=== PATIENT | female | born 1965 | race Caucasian/White ===

== ENCOUNTER → 2023-02-01 | Outpatient (CLI) | payer OTHER ==
[~2023-02-01] MED LIST: ASP81CT PO; BUDE6HFA; CPR500T PO; HYDR1TAB PO; LISI2.5T; MTP25TSR PO; NCT7P TD; NF-ESOM40C; OXYC-309 PO; SENN1TAB76 PO; SEROQUEL; TEMA30CA6 PO; VARE0.5T PO; VARE1TAB17 PO
--- NOTE | 2023-02-01 17:01 | Diagnostic Imaging Report ---
PROCEDURE: CT abdomen and pelvis without contrast. TECHNIQUE: Multiple contiguous axial images were obtained through the abdomen and pelvis without the use of intravenous contrast. Auto Exposure Controls were utilized during the CT exam to meet ALARA standards for radiation dose reduction. INDICATION: History of renal cysts. COMPARISON: None. FINDINGS: The heart is unremarkable. The lung bases are clear. 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 There is atrophy of the right kidney. Scattered small nonobstructing calculi are seen. No obstructing calculi or hydronephrosis. Cortical cysts are seen in both kidneys. The urinary bladder is nondistended. No bladder calculi. Pneumobilia is seen. There is also air in the gallbladder. Cystic focus is seen in the tail of the pancreas with peripheral calcifications measuring 3.3 x 2.4 cm. No pancreatic ductal dilation. The adrenal glands have an unremarkable noncontrast CT appearance. There is no pathologically enlarged mesenteric or retroperitoneal adenopathy. Postsurgical changes of right hemicolectomy are noted. There is soft tissue fullness with associated calcifications extending from the colectomy site measuring 3.8 x 2.4 cm. No bowel obstruction. A small ventral hernia extending left of midline is seen containing a loop of bowel. No significant inflammatory changes are associated with this. Scattered diverticula are present in the sigmoid colon without evidence of acute diverticulitis. No free fluid or free air. No acute osseous abnormalities. Posterior fusion changes are seen at L5-S1. There is calcified aortic and iliac atherosclerotic plaque without aneurysm. An IVC filter is in place. There is no free air, loculated collection, or adenopathy in the pelvis. IMPRESSION: 1. Bilateral renal cysts, incompletely evaluated on this noncontrast study. If indicated consider ultrasound or contrast enhanced study to further evaluate. No hydronephrosis. Punctate nonobstructing calculi are seen bilaterally. There is atrophy of the right kidney. 2. Pneumobilia with air in the gallbladder. Findings may represent sphincter of Christopher dysfunction. Recommend correlation with patient history and symptoms and if indicated ERCP to further evaluate. 3. Cystic focus in the tail of the pancreas with peripheral calcifications. Given the absent spleen this may represent postsurgical changes. Pancreatic neoplasm is not excluded and followup is recommended. 4. Postsurgical changes of right hemicolectomy with soft tissue fullness and associated calcifications extending from the colectomy site. This may represent chronic postsurgical changes versus recurrent/residual mass. Recommend attention on followup. 5. Ventral hernia extending left of midline containing a loop of bowel. No associated inflammation or obstruction. Recommend correlation with physical exam and if indicated surgical consultation to further evaluate. Dictated by: Dictated on workstation # [id number]
== END ==
LOC: RAD 12:35
PROVIDERS: ATTEND Internal Medicine Nephrology
DX: N28.1 Cyst of kidney, acquired (principal); N20.0 Calculus of kidney; N26.1 Atrophy of kidney (terminal); K86.2 Cyst of pancreas; K43.9 Ventral hernia without obstruction or gangrene; K83.8 Other specified diseases of biliary tract; Z90.49 Acquired absence of other specified parts of digestive tract; Z98.890 Other specified postprocedural states
CPT/HCPCS: 74176